=== PATIENT | female | born 1990 | race Two or more races ===

== ENCOUNTER → 2017-06-23 | Outpatient (CLI) | payer OTHER ==
--- NOTE | 2017-06-23 08:45 | WOMENS IMAGING REPORT ---
EXAM DESCRIPTION: TRANSVAGINAL ULTRASOUND COMPLETED DATE/TIME: 06/23/2017 7:45 am REASON FOR STUDY: DYSPAREUNIA N94.10 UNSPECIFIED DYSPAREUNIA COMPARISON: None. TECHNIQUE: Dynamic and static grayscale images acquired of the pelvis via transvaginal approach and recorded on PACS. Additional selected color Doppler and spectral images recorded. LIMITATIONS: None. FINDINGS: UTERUS: Contour normal. No mass. ENDOMETRIAL STRIPE: No focal thickening. No fluid or mass. IUD artifact. CERVIX: No nabothian cysts. RIGHT OVARY: No abnormal masses. RIGHT OVARY DOPPLER: Normal arterial vascular flow without evidence for torsion. LEFT OVARY: No abnormal masses. LEFT OVARY DOPPLER: Normal arterial vascular flow without evidence for torsion. FREE FLUID: None noted. OTHER: No other significant finding. MEASUREMENTS: UTERUS: 8 x 3 x 5 cm ENDOMETRIAL STRIPE: 4 mm RIGHT OVARY: 3 x 2 x 3 cm LEFT OVARY: 3 x 2 x 3 cm IMPRESSION: Generally unremarkable transvaginal pelvic ultrasound. IUD looks grossly appropriately located. Uterus and ovaries unremarkable. TECHNICAL DOCUMENTATION: JOB ID: [id number]- All Rights Reserved Reading location - IP/workstation name: [email or web address]
== END ==
LOC: WI 06:56
PROVIDERS: ATTEND Physician Assistant
DX: N94.10 Unspecified dyspareunia (principal); Z97.5 Presence of (intrauterine) contraceptive device
CPT/HCPCS: 76830

== ENCOUNTER → 2017-09-03 | Day surgery (SDC) | payer OTHER ==
[~2017-09-03] MED LIST: BUPIVACAINE HCL 0.5 % INJ/PF 30 ML SDV ONE; LIDOCAINE 1% INJ-PF (10 MG/ML) 30 ML SDV ONE; METHYLPREDNISOLONE ACETATE INJ 40 MG/1 ML ML ONE
--- NOTE | 2017-09-03 16:24 | RADIOLOGY REPORT (SQ) ---
EXAM DESCRIPTION: INJECT/ASPIR HIP/SHLDR/KNEE; FLUORO/NEEDLE PLACEMENT COMPLETED DATE/TIME: 09/03/2017 4:14 pm REASON FOR STUDY: LEFT HIP PAIN M25.552 PAIN IN LEFT HIP COMPARISON: None. FLUOROSCOPY TIME: 7 seconds. 1 images saved to PACS. LIMITATIONS: None. PROCEDURE: SITE OF INJECTION: Left hip. LOCALIZING CONTRAST TYPE AND DOSE: 1 mL Isovue-300. MEDICATION TYPE AND DOSE: 80 mg Depo-Medrol and 5 mL Sensorcaine. Using local anesthesia and sterile technique with fluoroscopic guidance, the needle was advanced into the joint. Iodinated contrast was injected to verify intraarticular placement. This was followed by therapeutic injection of the indicated medications. The needle was removed. There were no immediat e complications. Preprocedure pain level: 4/5. Postprocedure pain level: 1/5. IMPRESSION: THERAPEUTIC INJECTION OF THE LEFT HIP JOINT ABOVE. COMMENT: Patient medication list reviewed: Yes- Quality ID# [id number]:Eligible professional attests to doc umenting in the medical record they obtained, updated, or reviewed the patient's current medications. . Quality ID 145: Final reports for procedures using fluoroscopy that document radiation exposure gilson kiera, or exposure time and number of fluorographic images (if radiation exposure indices are not avail able) TECHNICAL DOCUMENTATION: JOB ID: [id number] [employer]- All Rights Reserved Reading location - IP/workstation name: [facility]
--- NOTE | 2017-09-03 16:24 | RADIOLOGY REPORT (SQ) ---
EXAM DESCRIPTION: INJECT/ASPIR HIP/SHLDR/KNEE; FLUORO/NEEDLE PLACEMENT COMPLETED DATE/TIME: 09/03/2017 4:14 pm REASON FOR STUDY: LEFT HIP PAIN M25.552 PAIN IN LEFT HIP COMPARISON: None. FLUOROSCOPY TIME: 7 seconds. 1 images saved to PACS. LIMITATIONS: None. PROCEDURE: SITE OF INJECTION: Left hip. LOCALIZING CONTRAST TYPE AND DOSE: 1 mL Isovue-300. MEDICATION TYPE AND DOSE: 80 mg Depo-Medrol and 5 mL Sensorcaine. Using local anesthesia and sterile technique with fluoroscopic guidance, the needle was advanced into the joint. Iodinated contrast was injected to verify intraarticular placement. This was followed by therapeutic injection of the indicated medications. The needle was removed. There were no immediat e complications. Preprocedure pain level: 4/5. Postprocedure pain level: 1/5. IMPRESSION: THERAPEUTIC INJECTION OF THE LEFT HIP JOINT ABOVE. COMMENT: Patient medication list reviewed: Yes- Quality ID# [id number]:Eligible professional attests to doc umenting in the medical record they obtained, updated, or reviewed the patient's current medications. . Quality ID 145: Final reports for procedures using fluoroscopy that document radiation exposure gilson kiera, or exposure time and number of fluorographic images (if radiation exposure indices are not avail able) TECHNICAL DOCUMENTATION: JOB ID: [id number] [employer]- All Rights Reserved Reading location - IP/workstation name: [facility]
== END ==
LOC: RAD 15:20
PROVIDERS: ATTEND Orthopaedic Surgery Sports Medicine
DX: M25.552 Pain in left hip (principal)
CPT/HCPCS: 20610; 77002; J3490 ×2; J1020

== ENCOUNTER 2018-08-12 21:58 | Emergency (ER) | payer OTHER ==
[2018-08-12 22:14] VITALS: BP 107/69
== END 2018-08-12 23:13 | disposition left against medical advice (07) ==
LOC: ER 21:58
DX: Z53.21 Procedure and treatment not carried out due to patient leaving prior to being seen by health care provider (principal)